=== PATIENT | male | born 1995 | race Caucasian/White ===

== ENCOUNTER 2022-11-17 15:24 | Day surgery (SDC) | payer SELFPAY ==
[2022-11-17] MEDS ORDERED: ONDANSETRON 4 MG/2 ML VIAL ONE (16:05)
[2022-11-17] MEDS ORDERED: GLUCAGON 1 MG/VIAL ONE (16:05)
[2022-11-17] MEDS ORDERED: NA CHLORIDE 0.9% 1,000 ML ONE (16:05)
[2022-11-17] MEDS ORDERED: FAMOTIDINE 20 MG/2 ML VIAL IV ONE (16:06)
[2022-11-17 16:07] LABS: Absolute Lymphocytes (CBC) 1.9 K/uL (0.7-4.9); Hematocrit 42.7 % (39.6-49.0); Lymphocytes % 32.5 % (15.3-44.8); MCV 83.6 fL (80-100); MPV 6.5 fL (7.6-11.3); RBC Red Blood Cell Count 5.11 M/uL (4.33-5.43)
[2022-11-17 16:28] LABS: Albumin 4.4 g/dL (3.4-5.0); Bilirubin Total 0.8 mg/dL (0.2-1.0); Potassium 4.4 mEq/L (3.5-5.1); Protein, Total 8.6 g/dL (6.4-8.2)
--- NOTE | 2022-11-17 17:14 | ER ---
Nurse's Notes [facility] Name: Luiz Olmos III Age: 27 yrs Sex: Male : 1995 Arrival Date: 11/17/2022 Time: 15:24 Bed 8 Private MD: Diagnosis: Esophageal obstruction Presentation: 11/17 15:30 Chief complaint: Patient states: "We were eating leftovers that consisted of chicken mb9 breast for lunch I cut a small piece and when I went to swallow I feel like it got stuck. I tried to make myself throw up, drink soda or water, and nothing worked. This has happened before where they had to remove the food. I haven't been able to eat for the past few hours" Pt denies SOB. No drooling or distress noted. Coronavirus screen: Vaccine status: Patient reports receiving the 2nd dose of the covid vaccine. Ebola Screen: No symptoms or risks identified at this time. Initial Sepsis Screen: Does the patient meet any 2 criteria? No. Patient's initial sepsis screen is negative. Does the patient have a suspected source of infection? No. Patient's initial sepsis screen is negative. Risk Assessment: Do you want to hurt yourself or someone else? Patient reports no desire to harm self or others. Onset of symptoms was November 17, 2022. 15:30 Method Of Arrival: Ambulatory [facility] 15:30 Acuity: YUVAL 3 mb9 Triage Assessment: 15:34 General: Appears in no apparent distress. Behavior is calm, cooperative. Pain: mb9 Complains of pain in neck. Neuro: Pierce Agitation-Sedation Scale (RASS): 0 - Alert and Calm Level of Consciousness is awake, alert, obeys commands, Oriented to person, place, time, situation, Appropriate for age. Cardiovascular: Patient's skin is warm and dry. Respiratory: Airway is patent Respiratory effort is even, unlabored, Respiratory pattern is regular, symmetrical, Breath sounds are clear bilaterally. GI: Abdomen is flat, non-distended. Derm: Skin is pink, warm \\T\\ dry. Musculoskeletal: Range of motion: intact in all extremities. Historical: - Allergies: 15:33 No Known Allergies; mb9 - Home Meds: 15:33 None [Active]; mb9 - PMHx: 15:33 None; mb9 - PSHx: 15:33 None; mb9 - Immunization history:: Adult Immunizations up to date. - Social history:: Smoking status: Patient denies any tobacco usage or history of. Screenin:37 [facility] ED Fall Risk Assessment (Adult) History of falling in the last 3 months, mb9 including since admission No falls in past 3 months (0 pts) Confusion or Disorientation No (0 pts) Intoxicated or Sedated No (0 pts) Impaired Gait No (0 pts) Mobility Assist Device Used No (0 pt) Altered Elimination No (0 pt) Score/Fall Risk Level 0 - 2 = Low Risk Oriented to surroundings, Maintained a safe environment, Educated pt \\T\\ family on fall prevention, incl call for assistance when getting out of bed. Abuse screen: Denies threats or abuse. Nutritional screening: No deficits noted. Tuberculosis screening: No symptoms or risk factors identified. Assessment: 15:35 Reassessment: see triage assessment. mb9 16:06 General: Appears in no apparent distress. comfortable, Behavior is calm, cooperative, sc3 Denies fever, feeling ill, fatigue, chills. Pain: Denies pain. Neuro: No deficits noted. Cardiovascular: No deficits noted. Respiratory: No deficits noted. GI: Reports food bolus lodged in esophagus. : No deficits noted. EENT: No deficits noted. Derm: No deficits noted. Musculoskeletal: No deficits noted. 17:30 Reassessment: PT ADMIT TO OR. bp Vital Signs: 15:30 BP 129 / 88; Pulse 83; Resp 18; Temp 97.8; Pulse Ox 97% on R/A; Weight 79.38 kg; Height mb9 5 ft. 9 in. ; 16:05 BP 119 / 77; Pulse 80; Resp 16; Temp 97.8; Pulse Ox 98% on R/A; Pain 0/10; sc3 17:30 BP 113 / 71; Pulse 56; Resp 16; Pulse Ox 99% ; bp 15:30 Body Mass Index 25.84 (79.38 kg, 175.26 cm) mb9 16:05 Pain Scale: Adult nv3 ED Course: 15:27 Patient arrived in ED. im 15:28 Vamshi Winston PA is PHCP. cp 15:28 Dayo Hernandes MD is Attending Physician. cp 15:29 Roni Rivera MD is Attending Physician. cp 15:33 Triage completed. mb9 15:33 Arm band placed on. mb9 15:37 Nafisa Herzog, VIET is Primary Nurse. mb9 15:37 Placed in gown. Bed in low position. Call light in reach. Side rails up X 1. Client mb9 placed on continuous cardiac and pulse oximetry monitoring. NIBP monitoring applied. 15:38 No provider procedures requiring assistance completed. mb9 15:55 Nafisa Herzog, RN is Primary Nurse. mb9 16:07 Inserted saline lock: 20 gauge in left antecubital area, using aseptic technique. sc3 16:31 Evan Mendez, VIET is Primary Nurse. sc3 17:13 Salvador Vargas MD is Hospitalizing Provider. cp Administered Medications: 16:05 Drug: NS 0.9% IV 1000 ml Route: IV; Rate: 500 ml/hr; Site: left antecubital; sc3 16:05 Drug: Famotidine IVP 20 mg Route: IVP; Site: left antecubital; sc3 16:05 Drug: Ondansetron IVP 4 mg Route: IVP; Site: left antecubital; sc3 16:05 Drug: Glucagon IVP 1 mg Route: IVP; Site: left antecubital; sc3 Medication: 15:37 VIS not applicable for this client. mb9 Outcome: 17:13 Decision to Hospitalize by Provider. cp 17:41 Patient left the ED. bp Signatures: Vamshi Winston PA PA cp Avelino Lopez RN RN bp Nafisa Herzog RN RN mb9 Bette Nuñez Evan Mendez, VIET RN sc3 Corrections: (The following items were deleted from the chart) 15:39 15:30 Acuity: YUVAL 4 mb9 mb9
--- NOTE | 2022-11-17 17:14 | EDPHYS ---
Physician Documentation [facility] Name: Luiz Olmos III Age: 27 yrs Sex: Male : 1995 Arrival Date: 11/17/2022 Time: 15:24 Bed 8 Private MD: ED Physician Roni Rivera HPI: 11/17 15:40 This 27 yrs old Male presents to ER via Ambulatory with complaints of STUCK CHICKEN cp BREAST IN THROAT. 15:40 The patient presents with dysphagia, of both solids and liquids, a foreign body cp sensation in the throat. 15:40 Onset: The symptoms/episode began/occurred 2 hour(s) ago. Severity of symptoms: in the emergency department the symptoms are unchanged, despite home interventions. Associated signs and symptoms: The patient has no apparent associated signs or symptoms. The patient has experienced similar episodes in the past, multiple times. Patient presents to ED with esophageal foreign body. Was eating chicken when piece got stuck. Has had multiple similar episodes in the past. Historical: - Allergies: 15:33 No Known Allergies; mb9 - Home Meds: 15:33 None [Active]; mb9 - PMHx: 15:33 None; mb9 - PSHx: 15:33 None; mb9 - Immunization history:: Adult Immunizations up to date. - Social history:: Smoking status: Patient denies any tobacco usage or history of. ROS: 15:45 ENT: Positive for difficulty swallowing, esophageal foreign body, Negative for drainage cp from ear(s), ear pain, sore throat, difficulty handling secretions. 15:45 Constitutional: Negative for fever. cp 15:45 Eyes: Negative for injury, pain, redness, and discharge. cp 15:45 Cardiovascular: Negative for chest pain. 15:45 Respiratory: Negative for cough, shortness of breath, wheezing. 15:45 Abdomen/GI: Negative for abdominal pain, vomiting, diarrhea, constipation. 15:45 Back: Negative for pain at rest, pain with movement. 15:45 Neuro: Negative for altered mental status, dizziness, headache, weakness. cp 15:45 All other systems are negative. Exam: 15:50 Constitutional: The patient appears in no acute distress, alert, awake, cp non-diaphoretic, non-toxic, well developed, well nourished. 15:50 Head/Face: Normocephalic, atraumatic. cp 15:50 Eyes: Periorbital structures: appear normal, Conjunctiva: normal, no exudate, no injection, Sclera: no appreciated abnormality, Lids and lashes: appear normal, bilaterally. 15:50 ENT: External ear(s): are unremarkable, Nose: is normal, Mouth: Lips: moist, Oral mucosa: pink and intact, moist, Posterior pharynx: is normal, airway is patent, no erythema, no exudate. 15:50 Chest/axilla: Inspection: normal. 15:50 Cardiovascular: Rate: normal, Rhythm: regular. 15:50 Respiratory: the patient does not display signs of respiratory distress, Respirations: normal, no use of accessory muscles, no retractions, labored breathing, is not present, Breath sounds: are clear throughout, no decreased breath sounds, no stridor, no wheezing. 15:50 Abdomen/GI: Inspection: abdomen appears normal, Bowel sounds: active, all quadrants, Palpation: abdomen is soft and non-tender, in all quadrants. 15:50 Neuro: Orientation: to person, place \T\ time. Mentation: is normal, Motor: moves all fours, strength is normal. Vital Signs: 15:30 BP 129 / 88; Pulse 83; Resp 18; Temp 97.8; Pulse Ox 97% on R/A; Weight 79.38 kg; Height mb9 5 ft. 9 in. ; 16:05 BP 119 / 77; Pulse 80; Resp 16; Temp 97.8; Pulse Ox 98% on R/A; Pain 0/10; sc3 17:30 BP 113 / 71; Pulse 56; Resp 16; Pulse Ox 99% ; bp 15:30 Body Mass Index 25.84 (79.38 kg, 175.26 cm) mb9 16:05 Pain Scale: Adult sc3 MDM: 15:36 Patient medically screened. cp 16:00 Differential diagnosis: laryngitis, ammy's angina, peritonsillar abscess cp retropharyngeal abcess. 16:30 Management of patient was discussed with the following: Green Building Materials Designer: STEVE Solo with cp office of DR Vargas will notify on-call GI. 16:48 Data reviewed: vital signs, nurses notes, lab test result(s). ED course: spoke with DR gem Vargas who will contact same day surgery. 11/17 15:40 Order name: CBC with Diff; Complete Time: 16:36 cp 11/17 16:37 Interpretation: Normal except: MPV 6.5; EOSINOPHIL % 5.6; BASO% 1.4. cp 11/17 15:40 Order name: CMP; Complete Time: 16:36 cp 11/17 16:37 Interpretation: Normal except: CL 108; AST 13; TP 8.6; GLOB 4.2; A/G 1.0. cp 11/17 15:40 Order name: IV Saline Lock; Complete Time: 15:53 cp 11/17 15:40 Order name: Labs collected and sent; Complete Time: 15:53 cp 11/17 16:36 Order name: NPO; Complete Time: 16:42 cp Administered Medications: 16:05 Drug: NS 0.9% IV 1000 ml Route: IV; Rate: 500 ml/hr; Site: left antecubital; sc3 16:05 Drug: Famotidine IVP 20 mg Route: IVP; Site: left antecubital; sc3 16:05 Drug: Ondansetron IVP 4 mg Route: IVP; Site: left antecubital; sc3 16:05 Drug: Glucagon IVP 1 mg Route: IVP; Site: left antecubital; sc3 Disposition Summary: 11/17/22 17:13 Hospitalization Ordered Hospitalization Status: Observation cp Provider: Salvador Vargas cp Location: DAY SURGERY OTHER cp Condition: Stable cp Problem: new cp Symptoms: are unchanged cp Bed/Room Type: Standard cp Room Assignment: cp Diagnosis - Esophageal obstruction cp Forms: - Medication Reconciliation Form cp - SBAR form cp Signatures: Dispatcher [employer] EDVamshi Drummond PA PA cp Breneman, Mary Beth RN RN mb9 Evan Mendez RN RN sc3
[2022-11-17] MEDS ORDERED: Ringers Lactate 1,000 ML IV ONE (17:52)
[2022-11-17] MEDS ORDERED: propofoL 200 MG/20 ML VIAL IV ONE (18:49)
[2022-11-17] MEDS ORDERED: MIDAZOLAM HCL 2 MG/2 ML INJ ONE (18:49)
[2022-11-17] MEDS ORDERED: LIDOCAINE 1% MPF 5 ML VIAL ONE (18:49)
[2022-11-17 20:00] VITALS: BP 112/58; TEMP 97.4; O2SAT 98
== END 2022-11-17 20:31 | disposition home or self-care (01) ==
LOC: ER 15:24 → DS 19:00
PROVIDERS: ATTEND Internal Medicine Gastroenterology
PROC: 0DB58ZX Excision of Esophagus, Via Natural or Artificial Opening Endoscopic, Diagnostic (ICD-10-PCS; principal; 2022-11-17 18:15)
DX: K22.2 Esophageal obstruction (principal); K20.90 Esophagitis, unspecified without bleeding
CPT/HCPCS: 36415; 80053; 85025; 88305; 96374; 96375; 99284; J1610; J2001; J2250; J2405; J2704; J7030; J7120

== ENCOUNTER 2023-04-25 21:00 | Emergency (ER) | payer SELFPAY ==
--- NOTE | 2023-04-25 21:26 | EDPHYS ---
Physician Documentation [facility] Name: Luiz Olmos III Age: 27 yrs Sex: Male : 1995 Arrival Date: 04/25/2023 Time: 21:00 Bed IW2 Private MD: ED Physician Dylon Murray HPI: 04/25 22:19 This 27 yrs old Male presents to ER via Ambulatory with complaints of Toothache. snw Historical: - Allergies: 21:20 No Known Allergies; mb9 - Home Meds: 21:20 None [Active]; mb9 - PMHx: 21:20 None; mb9 - PSHx: 21:20 None; mb9 - Immunization history:: Adult Immunizations up to date. - Social history:: Smoking status: Patient denies any tobacco usage or history of. ROS: 22:19 Constitutional: Negative for fever, chills, and weight loss, Eyes: Negative for injury, snw pain, redness, and discharge, ENT: Negative for injury and discharge, +dental pain x 5 days to right back molar Neck: Negative for injury, pain, and swelling, Cardiovascular: Negative for chest pain, palpitations, and edema, Respiratory: Negative for shortness of breath, cough, wheezing, and pleuritic chest pain, Abdomen/GI: Negative for abdominal pain, nausea, vomiting, diarrhea, and constipation, Back: Negative for injury and pain, : Negative for injury, bleeding, discharge, and swelling, MS/Extremity: Negative for injury and deformity, Skin: Negative for injury, rash, and discoloration, Neuro: Negative for headache, weakness, numbness, tingling, and seizure, Psych: Negative for depression, anxiety, suicide ideation, homicidal ideation, and hallucinations, Exam: 22:17 Constitutional: This is a well developed, well nourished patient who is awake, alert, snw and in no acute distress. Head/Face: Normocephalic, atraumatic. Eyes: Pupils equal round and reactive to light, extra-ocular motions intact. Lids and lashes normal. Conjunctiva and sclera are non-icteric and not injected. Cornea within normal limits. Periorbital areas with no swelling, redness, or edema. ENT: Nares patent. No nasal discharge, no septal abnormalities noted. Tympanic membranes are normal and external auditory canals are clear. Oropharynx with no redness, swelling, or masses, exudates, or evidence of obstruction, uvula midline. Mucous membranes moist. extensive dental caries and fillings. tenderness to right back mandible/molar Neck: Trachea midline, no thyromegaly or masses palpated, and no cervical lymphadenopathy. Supple, full range of motion without nuchal rigidity, or vertebral point tenderness. No Meningismus. Chest/axilla: Normal chest wall appearance and motion. Nontender with no deformity. No lesions are appreciated. Cardiovascular: Regular rate and rhythm with a normal S1 and S2. No gallops, murmurs, or rubs. Normal PMI, no JVD. No pulse deficits. Respiratory: Lungs have equal breath sounds bilaterally, clear to auscultation and percussion. No rales, rhonchi or wheezes noted. No increased work of breathing, no retractions or nasal flaring. Abdomen/GI: Soft, non-tender, with normal bowel sounds. No distension or tympany. No guarding or rebound. No evidence of tenderness throughout. Back: No spinal tenderness. No costovertebral tenderness. Full range of motion. Skin: Warm, dry with normal turgor. Normal color with no rashes, no lesions, and no evidence of cellulitis. MS/ Extremity: Pulses equal, no cyanosis. Neurovascular intact. Full, normal range of motion. Neuro: Awake and alert, GCS 15, oriented to person, place, time, and situation. Cranial nerves II-XII grossly intact. Motor strength 5/5 in all extremities. Sensory grossly intact. Cerebellar exam normal. Normal gait. Psych: Awake, alert, with orientation to person, place and time. Behavior, mood, and affect are within normal limits. Vital Signs: 21:19 BP 127 / 88; Pulse 71; Resp 18; Temp 98; Pulse Ox 100% ; Weight 74.84 kg; Height 5 ft. mb9 9 in. ; Pain 10/10; 21:19 Body Mass Index 24.37 (74.84 kg, 175.26 cm) mb9 21:19 Pain Scale: Adult mb9 MDM: 21:21 Patient medically screened. snw 22:18 Differential diagnosis: dental caries, gingivitis, dental abscess. Data reviewed: vital snw signs, nurses notes. I considered the following discharge prescriptions or medication management in the emergency department Medications were administered in the Emergency Department. See MAR. Counseling: I had a detailed discussion with the patient and/or guardian regarding the historical points, exam findings, and any diagnostic results supporting the discharge/admit diagnosis, the need for outpatient follow up, for definitive care, a dentist, to return to the emergency department if symptoms worsen or persist or if there are any questions or concerns that arise at home. Special discussion: Based on the history and exam findings, there is no indication for further emergent testing or inpatient evaluation. I discussed with the patient/guardian the need to see a dentist for further evaluation of the symptoms. Administered Medications: 21:30 Drug: Hydrocodone-Acetaminophen PO (7.5 mg-325 mg) 1 tabs PO once Route: PO; mb9 21:42 Follow up: Response: No adverse reaction mb9 21:30 Drug: Amoxicillin-Clavulanate PO 875 mg PO once Route: PO; mb9 21:42 Follow up: Response: No adverse reaction mb9 Disposition: 04/26 00:07 Co-signature as Attending Physician, Dylon Murray MD I agree with the assessment sp4 and plan of care. I reviewed the patient's care provided by the Advanced Practice Provider and agree with the diagnosis and treatment plan. Disposition Summary: 04/25/23 21:25 Discharge Ordered Notes: Location: Home snw Condition: Stable snw Diagnosis - Dental caries, unspecified snw Followup: snw - With: Emergency Department - When: As needed - Reason: Worsening of condition Followup: snw - With: Private Physician - When: 2 - 3 days - Reason: Recheck today's complaints, Continuance of care, Re-evaluation by your physician Discharge Instructions: - Dental Caries, Adult snw - Dental Pain snw - Root Canal snw - Diet and Dental Disease snw - Dental Extraction, Care After snw - Discharge Summary Sheet mb9 Forms: - Medication Reconciliation Form snw - Thank You Letter snw - Antibiotic Education snw - Prescription Opioid Use snw - Patient Portal Instructions snw - Leadership Thank You Letter snw - Work release form mb9 - Family Work Release mb9 Prescriptions: - chlorhexidine gluconate 0.12 % subgingival-local Mouthwash - swish 15 milliliter ORAL route 2 times per day; 480 milliliter; Refills: 0, snw Product Selection Permitted - Augmentin 500-125 mg Oral Tablet - take 1 tablet ORAL route every 8 hours for 10 days; 30 tablet; Refills: 0, snw Product Selection Permitted - Tramadol 50 mg Oral Tablet - take 1 tablet ORAL route every 8 hours as needed; 12 tablet; Refills: 0, snw Product Selection Permitted Signatures: Anusha Warner, QUINTIN-C DROP HAMMER SET UP OPERATOR-Csnw Nafisa Herzog RN RN mb9 Dylon Murray MD MD sp4
--- NOTE | 2023-04-25 21:26 | ER ---
Nurse's Notes [facility] Name: Luiz Olmos III Age: 27 yrs Sex: Male : 1995 Arrival Date: 04/25/2023 Time: 21:00 Bed IW2 Private MD: Diagnosis: Dental caries, unspecified Presentation: 04/25 21:19 Chief complaint: Patient states: "I've had a bad toothache on the right side for a few mb9 days now. It hurts so bad. I don't have insurance right now so that's why i'm here". Coronavirus screen: Vaccine status: Patient reports receiving the 2nd dose of the covid vaccine. Ebola Screen: No symptoms or risks identified at this time. Initial Sepsis Screen: Does the patient meet any 2 criteria? No. Patient's initial sepsis screen is negative. Does the patient have a suspected source of infection? No. Patient's initial sepsis screen is negative. Risk Assessment: Do you want to hurt yourself or someone else? Patient reports no desire to harm self or others. Onset of symptoms was April 25, 2023. 21:19 Method Of Arrival: Ambulatory mb9 21:19 Acuity: YUVAL 4 mb9 Triage Assessment: 21:22 General: Appears in no apparent distress. distressed, Behavior is calm, cooperative. mb9 Pain: Complains of pain in tooth Pain does not radiate. Pain currently is 10 out of 10 on a pain scale. EENT: Poor dentition noted. EENT: Reports pain. Neuro: Pierce Agitation-Sedation Scale (RASS): 0 - Alert and Calm Level of Consciousness is awake, alert, obeys commands, Oriented to person, place, time, situation, Appropriate for age. Cardiovascular: Patient's skin is warm and dry. Respiratory: Airway is patent Respiratory effort is even, unlabored, Respiratory pattern is regular, symmetrical. GI: No signs and/or symptoms were reported involving the gastrointestinal system. : No signs and/or symptoms were reported regarding the genitourinary system. Derm: Skin is pink, warm \\T\\ dry. Musculoskeletal: Range of motion: intact in all extremities. Historical: - Allergies: 21:20 No Known Allergies; mb9 - Home Meds: 21:20 None [Active]; mb9 - PMHx: 21:20 None; mb9 - PSHx: 21:20 None; mb9 - Immunization history:: Adult Immunizations up to date. - Social history:: Smoking status: Patient denies any tobacco usage or history of. Screenin:23 [facility] ED Fall Risk Assessment (Adult) History of falling in the last 3 months, mb9 including since admission No falls in past 3 months (0 pts) Confusion or Disorientation No (0 pts) Intoxicated or Sedated No (0 pts) Impaired Gait No (0 pts) Mobility Assist Device Used No (0 pt) Altered Elimination No (0 pt) Score/Fall Risk Level 0 - 2 = Low Risk Oriented to surroundings, Maintained a safe environment, Educated pt \\T\\ family on fall prevention, incl call for assistance when getting out of bed. Abuse screen: Denies threats or abuse. Nutritional screening: No deficits noted. Tuberculosis screening: No symptoms or risk factors identified. Assessment: 21:23 Reassessment: see triage assessment. mb9 Vital Signs: 21:19 BP 127 / 88; Pulse 71; Resp 18; Temp 98; Pulse Ox 100% ; Weight 74.84 kg; Height 5 ft. mb9 9 in. ; Pain 10/10; 21:19 Body Mass Index 24.37 (74.84 kg, 175.26 cm) mb9 21:19 Pain Scale: Adult mb9 ED Course: 21:03 Patient arrived in ED. mr 21:15 Anusha Warner, [facility] snw 21:15 Dylon Murray MD is Attending Physician. snw 21:20 Triage completed. mb9 21:21 Arm band placed on. mb9 21:23 Adult w/ patient. mb9 21:41 No provider procedures requiring assistance completed. Patient did not have IV access mb9 during this emergency room visit. Administered Medications: 21:30 Drug: Hydrocodone-Acetaminophen PO (7.5 mg-325 mg) 1 tabs PO once Route: PO; mb9 21:42 Follow up: Response: No adverse reaction mb9 21:30 Drug: Amoxicillin-Clavulanate PO 875 mg PO once Route: PO; mb9 21:42 Follow up: Response: No adverse reaction mb9 Medication: 21:23 VIS not applicable for this client. mb9 Outcome: 21:25 Discharge ordered by . snw 21:41 Discharged to home ambulatory, with family, mb9 21:41 Condition: stable 21:41 Discharge instructions given to patient, family, Instructed on discharge instructions, follow up and referral plans. Demonstrated understanding of instructions, follow-up care, medications, Prescriptions given X 3, 21:42 Patient left the ED. mb9 Signatures: Anusha Warner, OPERATOR PREFINISH-C OPERATOR PREFINISH-Csnw Nafisa Melendez, Reg Reg Nafisa Flores, RN RN philip9
[2023-04-25] MEDS ORDERED: HYDROCODONE/APAP 7.5/325 MG TAB ONE (21:43)
[2023-04-25] MEDS ORDERED: AMOX/K CLAV 875 MG TAB ONE (21:43)
[2023-04-25 22:04] VITALS: BP 127/88; TEMP 98; O2SAT 100
== END 2023-04-25 21:42 | disposition home or self-care (01) ==
LOC: ER 21:00
DX: K02.9 Dental caries, unspecified (principal)
CPT/HCPCS: 99283

== ENCOUNTER → 2023-05-24 | Emergency (ER) | payer SELFPAY ==
[~2023-05-24] MED LIST: GLUCAGON 1 MG/VIAL ONE; NA CHLORIDE 0.9% 1,000 ML ONE
[2023-05-24 19:15] LABS: Absolute Lymphocytes (CBC) 1.6 K/uL (0.7-4.9); Lymphocytes % 26.3 % (15.3-44.8); MCV 84.6 fL (80-100); MPV 6.5 fL (7.6-11.3); Platelets 293 thou/uL (152-406); RBC Red Blood Cell Count 4.97 M/uL (4.33-5.43)
[2023-05-24 19:28] LABS: Potassium 3.7 mEq/L (3.5-5.1)
--- NOTE | 2023-05-24 19:54 | EDPHYS ---
Physician Documentation [facility] Name: Luiz Olmos III Age: 27 yrs Sex: Male : 1995 Arrival Date: 05/24/2023 Time: 18:18 Bed 3 Private MD: ED Physician Vamshi Morales HPI: 05/24 20:07 This 27 yrs old Male presents to ER via Ambulatory with complaints of Choked/Choking. kb 20:08 Patient is a 27-year-old male who presents for chicken stuck in esophagus that started kb 1 hour prior to arrival. States he is unable to get it up or down. Has had this happen before, approximately [address] Eagle did a scope and dilated his esophagus. States he is supposed to follow-up and have that done again around this time.. Historical: - Allergies: 18:30 No Known Allergies; nj1 - PMHx: 18:30 Gastric reflux; nj1 - Immunization history:: Client reports receiving the 2nd dose of the Covid vaccine. - Social history:: Smoking status: Reported history of juuling and/or vaping. ROS: 20:08 Constitutional: Negative for fever, chills, and weight loss, kb 20:08 ENT: Positive for Foreign body in esophagus, 20:08 All other systems are negative, Exam: 20:08 Constitutional: This is a well developed, well nourished patient who is awake, alert, kb and in no acute distress. Head/Face: Normocephalic, atraumatic. ENT: Moist Mucous membranes Cardiovascular: Regular rate Respiratory: Respirations even and unlabored. No increased work of breathing. Talking in full sentences Abdomen/GI: Soft, non-tender. No distention Skin: Warm, dry with normal turgor. Normal color. MS/ Extremity: Pulses equal, no cyanosis. Neurovascular intact. Full, normal range of motion. Neuro: Awake and alert, GCS 15, oriented to person, place, time, and situation. Moves all extremities. Normal gait. Vital Signs: 18:27 BP 139 / 87; Pulse 117; Resp 18; Pulse Ox 99% ; Weight 72.57 kg; Height 5 ft. 9 in. ; nj1 20:26 BP 121 / 78; Pulse 82; Resp 16; Pulse Ox 99% ; tl4 18:27 Body Mass Index 23.63 (72.57 kg, 175.26 cm) nj1 MDM: 18:25 Patient medically screened. kb 20:09 Data reviewed: vital signs, nurses notes. Historians other than the Patient: crow Spouse/Significant Other: significant other. Counseling: I had a detailed discussion with the patient and/or guardian regarding the historical points, exam findings, and any diagnostic results supporting the discharge/admit diagnosis, lab results, the need for outpatient follow up, a kidney puller, to return to the emergency department if symptoms worsen or persist or if there are any questions or concerns that arise at home. Response to treatment: the patient's symptoms have resolved after treatment, pt reports he felt the food bolus pass through after drinking soda. 05/24 18:30 Order name: CBC with Diff; Complete Time: 19:29 kb 05/24 18:30 Order name: Basic Metabolic Panel; Complete Time: 19:29 kb 05/24 18:30 Order name: IV Start; Complete Time: 19:09 kb 05/24 19:29 Order name: PO challenge: soda through a straw; Complete Time: 19:47 kb Administered Medications: 19:00 Drug: Glucagon IVP 1 mg IVP once Route: IVP; Site: left antecubital; cm10 20:27 Follow up: Response: No adverse reaction tl4 19:00 Drug: NS 0.9% IV 1000 ml IV at 1000 ml once Route: IV; Rate: 1000 ml; Site: left cm10 antecubital; 20:27 Follow up: Response: No adverse reaction; IV Status: Completed infusion; IV Intake: tl4 1000ml 20:29 Follow up: Response: No adverse reaction; IV Status: Completed infusion; IV Intake: cm10 1000ml Disposition Summary: 05/24/23 19:54 Discharge Ordered Notes: Location: Home kb Condition: Stable kb Diagnosis - Foreign body in esophagus - food bolus-resolved kb Followup: kb - With: Emergency Department - When: As needed - Reason: Worsening of condition Followup: kb - With: Private Physician - When: 2 - 3 days - Reason: Recheck today's complaints, Continuance of care, Re-evaluation by your physician Discharge Instructions: - Discharge Summary Sheet kb - Esophageal Dilatation kb Forms: - Medication Reconciliation Form kb - Thank You Letter kb - Antibiotic Education kb - Prescription Opioid Use kb - Patient Portal Instructions kb - Leadership Thank You Letter kb - Family Work Release cm10 Signatures: Dispatcher [employer] Roseline Urbina, GARRETC QUINTIN-Sherlyn Lee RN RN nj1 Beryl Sanabria RN RN cm10 Bull French 4
--- NOTE | 2023-05-24 19:54 | ER ---
Nurse's Notes [facility] Name: Luiz Olmos III Age: 27 yrs Sex: Male : 1995 Arrival Date: 05/24/2023 Time: 18:18 Bed 3 Private MD: Diagnosis: Foreign body in esophagus-food bolus-resolved Presentation: 05/24 18:27 Chief complaint: Patient states: Piece of chicken stuck in throat, "barely able to nj1 swallow spit". Had same problem about 6 months ago for same problem. Coronavirus screen: Coronavirus screen: Vaccine status: Patient reports receiving the 2nd dose of the covid vaccine. Ebola Screen: Patient denies travel to an Ebola-affected area in the 21 days before illness onset. Risk Assessment: Do you want to hurt yourself or someone else? Patient reports no desire to harm self or others. Onset of symptoms was May 24, 2023. 18:27 Method Of Arrival: Ambulatory [facility] 18:27 Acuity: YUVAL 3 nj 20:28 Initial Sepsis Screen: Does the patient meet any 2 criteria? No. Patient's initial tl4 sepsis screen is negative. Does the patient have a suspected source of infection? No. Patient's initial sepsis screen is negative. Triage Assessment: 19:00 General: Appears in no apparent distress. comfortable, Behavior is calm, cooperative. cm10 Pain: Denies pain. EENT: Reports Food bolus in throat.. Neuro: No deficits noted. Level of Consciousness is awake, alert, obeys commands, Oriented to person, place, time, situation. Cardiovascular: No deficits noted. Patient's skin is warm and dry. Respiratory: No deficits noted. Airway is patent Respiratory effort is even, unlabored, Respiratory pattern is regular, symmetrical. GI: No deficits noted. No signs and/or symptoms were reported involving the gastrointestinal system. : No deficits noted. Derm: No deficits noted. No signs and/or symptoms reported regarding the dermatologic system. Skin is intact, Skin is pink, warm \\T\\ dry. Musculoskeletal: No deficits noted. Range of motion: intact in all extremities. Historical: - Allergies: 18:30 No Known Allergies; nj1 - PMHx: 18:30 Gastric reflux; nj1 - Immunization history:: Client reports receiving the 2nd dose of the Covid vaccine. - Social history:: Smoking status: Reported history of juuling and/or vaping. Screenin:00 [facility] ED Fall Risk Assessment (Adult) History of falling in the last 3 months, cm10 including since admission No falls in past 3 months (0 pts) Confusion or Disorientation No (0 pts) Intoxicated or Sedated No (0 pts) Impaired Gait No (0 pts) Mobility Assist Device Used No (0 pt) Altered Elimination No (0 pt) Score/Fall Risk Level 0 - 2 = Low Risk Oriented to surroundings, Maintained a safe environment, Hourly rounding (assess needs \\T\\ fall precautionary measures) done. Abuse screen: Denies threats or abuse. Denies injuries from another. Nutritional screening: No deficits noted. Tuberculosis screening: No symptoms or risk factors identified. Assessment: 20:05 Reassessment: Pt states that food bolus has passed and feels better. Patient states cm10 feeling better. Patient states symptoms have improved. Vital Signs: 18:27 BP 139 / 87; Pulse 117; Resp 18; Pulse Ox 99% ; Weight 72.57 kg; Height 5 ft. 9 in. ; nj1 20:26 BP 121 / 78; Pulse 82; Resp 16; Pulse Ox 99% ; tl4 18:27 Body Mass Index 23.63 (72.57 kg, 175.26 cm) nj1 ED Course: 18:19 Patient arrived in ED. rg4 18:25 Roseline Melgar FNP-C is PHCP. kb 18:25 Vamshi Morales MD is Attending Physician. kb 18:30 Triage completed. nj1 18:31 Arm band placed on right wrist. nj1 19:00 Patient has correct armband on for positive identification. Bed in low position. Call cm10 light in reach. Provided Education on: ER process and procedures. . 19:00 No provider procedures requiring assistance completed. cm10 19:00 Inserted saline lock: 20 gauge in left forearm, using aseptic technique. Blood cm10 collected. 20:27 IV discontinued, intact, bleeding controlled, No redness/swelling at site. Pressure tl4 dressing applied. Administered Medications: 19:00 Drug: Glucagon IVP 1 mg IVP once Route: IVP; Site: left antecubital; cm10 20:27 Follow up: Response: No adverse reaction tl4 19:00 Drug: NS 0.9% IV 1000 ml IV at 1000 ml once Route: IV; Rate: 1000 ml; Site: left cm10 antecubital; 20:27 Follow up: Response: No adverse reaction; IV Status: Completed infusion; IV Intake: tl4 1000ml 20:29 Follow up: Response: No adverse reaction; IV Status: Completed infusion; IV Intake: cm10 1000ml Medication: 19:00 VIS not applicable for this client. cm10 Intake: 20:27 IV: 1000ml; Total: 1000ml. tl4 20:29 IV: 1000ml; Total: 2000ml. cm10 Outcome: 19:54 Discharge ordered by MD. maria 20:28 Discharged to home ambulatory, with family, tl4 20:28 Condition: good 20:28 Discharge instructions given to patient, Instructed on discharge instructions, follow up and referral plans. Demonstrated understanding of instructions, follow-up care, 20:28 Patient left the ED. tl4 Signatures: Roseline Melgar, OVERWEAVER-C OVERWEAVER-Lucia Wild rg4 Sherlyn Davis RN RN nj1 Beryl Sanabria RN RN cm10 Bull French tl4
[2023-05-24 21:07] VITALS: BP 121/78; O2SAT 99
== END ==
LOC: ER 18:18
DX: T18.128A Food in esophagus causing other injury, initial encounter (principal)
CPT/HCPCS: 36415; 80048; 85025; 96361; 96374; 99284; J1610; J7030